=== PATIENT | female | born 1995 | race Caucasian/White ===

== ENCOUNTER → 2018-04-12 | Outpatient (CLI) | payer BC | LOC: EDBD 09:36 → FIMAGING 09:36 | PROVIDERS: ATTEND Orthopaedic Surgery | DX: Z13.828 Encounter for screening for other musculoskeletal disorder (principal) ==

== ENCOUNTER 2018-08-13 04:35 | Emergency (ER) | payer BC ==
[2018-08-13] MEDS ORDERED: ONDANSETRON 4 MG/2 ML VIAL IVP ONE ×2 (04:48→06:11)
[2018-08-13] MEDS ORDERED: NS 1,000 ML IV ONE ×2 (04:48)
--- NOTE | 2018-08-13 04:55 | EDPHY ---
H & P Stated Complaint: N/V, ABD SINCE SUNDAY Time Seen by Provider: 08/13/18 04:43 HPI/ROS: Chief Complaint: Nausea and vomiting HPI: 22-year-old who is approximately 4-5 weeks by dates is presenting with nausea and vomiting and inability to keep anything down. [facility] She has not had an ultrasound. For the last day she has had multiple episodes of vomiting. Some mild abdominal cramping. No blood in her emesis. No diarrhea or constipation. No urinary urgency or frequency. She does not wish to keep the . No vaginal bleeding or spotting. ROS: 10 systems were reviewed and were negative except those elements noted in the HPI. PMH: IBS, interstitial cystitis Social History: No smoking, no alcohol, no recreational drug use Family History: non-contributory Physical Exam: Gen: Awake, Alert, No Distress HEENT: Nose: no rhinorrhea Eyes: PERRLA, EOMI Mouth: Dry mucous membranes Neck: Supple, no JVD Chest: nontender, lungs clear to auscultation Heart: S1, S2 normal, no murmur Abd: Soft, non-tender, no guarding Back: no CVA tenderness, no midline tenderness Ext: no edema, non-tender Skin: no rash Neuro: CN II-XII intact, Sensation grossly intact, Strength 5/5 in bilateral upper and lower extremities - Personal History LMP (Females 10-55): Current Tetanus/Diphtheria Vaccine: Yes - Medical/Surgical History Hx Asthma: No Hx Chronic Respiratory Disease: No Hx Diabetes: No Hx Cardiac Disease: No Hx Renal Disease: No Hx Cirrhosis: No Hx Alcoholism: No Hx HIV/AIDS: No Hx Splenectomy or Spleen Trauma: No Other PMH: painful bladder syndrome, IBS - Social History Smoking Status: Never smoked Constitutional: Initial Vital Signs Temperature (C) 36.5 C 08/13/18 04:36 Heart Rate 97 08/13/18 04:36 Respiratory Rate 18 08/13/18 04:36 Blood Pressure 135/98 H 08/13/18 04:36 O2 Sat (%) 97 08/13/18 04:36 O2 Delivery Mode Room Air Allergies/Adverse Reactions: No Known Allergies Allergy (Unverified 08/13/18 04:38) Home Medications: Medication Instructions Recorded NK [No Known Home Meds] 08/13/18 Medical Decision Making - Data Points Medications Given: Discontinued Medications Sodium Chloride (Ns) 1,000 mls @ 0 mls/hr IV EDNOW ONE; Wide Open PRN Reason: Protocol Stop: 08/13/18 04:49 Last Admin: 08/13/18 04:52 Dose: 1,000 mls Sodium Chloride (Ns) 1,000 mls @ 0 mls/hr IV EDNOW ONE; Wide Open PRN Reason: Protocol Stop: 08/13/18 04:49 Last Admin: 08/13/18 04:51 Dose: 1,000 mls Ondansetron HCl (Zofran) 4 mg IVP EDNOW ONE Stop: 08/13/18 04:49 Last Admin: 08/13/18 04:54 Dose: 4 mg Ondansetron HCl (Zofran) 4 mg IVP EDNOW ONE Stop: 08/13/18 06:12 Last Admin: 08/13/18 06:11 Dose: 4 mg Departure - Departure Disposition: Home, Routine, Self-Care Clinical Impression: Hyperemesis gravidarum, Dehydration Condition: Good Instructions: Hyperemesis Gravidarum (ED), Dehydration (ED), Ondansetron (By mouth) Additional Instructions: [facility]. Return to the emergency department for worsening vomiting, abdominal pain, vaginal bleeding, fainting, or any other concerns. Referrals: [facility] [Clinic] - As per Instructions
[2018-08-13] MEDS ORDERED: ONDANSETRON 4MG PREPACK#2 BTL TAKEHOME ONE (06:18)
[2018-08-13 06:47] VITALS: BP 100/70
== END 2018-08-13 06:43 | disposition home or self-care (01) ==
DX: O21.0 Mild hyperemesis gravidarum (principal); Z3A.01 Less than 8 weeks gestation of pregnancy
CPT/HCPCS: 96374; J2405